=== PATIENT | female | born 1980 | race Caucasian/White ===

== ENCOUNTER → 2022-04-10 10:21 | Outpatient (CLI) | payer BC, SELFPAY ==
--- NOTE | ~2022-04-10 | MM_ITS ---
EXAMINATION: MM screening rosalba BI w phan HISTORY: Screening mammogram TECHNIQUE: Craniocaudal and mediolateral oblique 3-D tomosynthesis images were obtained and synthetic 2-D images were generated. CAD analysis was submitted and interpreted. COMPARISON: None, baseline BREAST PARENCHYMAL COMPOSITION: The breasts are heterogeneously dense, which may obscure small masses . FINDINGS: There is no suspicious mass, calcification, or architectural distortion to suggest malignan cy in either breast. IMPRESSION: 1. No mammographic evidence of malignancy. 2. Recommend routine screening mammography in one year. BI-RADS Category 1: Negative Reviewed, dictated and finalized at location A.
== END ==
PROVIDERS: PCP Nurse Practitioner Family; Visit Provider Obstetrics & Gynecology Gynecology
DX: Z12.31 Encounter for screening mammogram for malignant neoplasm of breast (principal)
CPT/HCPCS: 77063; 77067

== ENCOUNTER → 2023-06-15 08:50 | Outpatient (CLI) | payer BC, SELFPAY ==
--- NOTE | ~2023-06-15 | MM_ITS ---
EXAMINATION: MM screening rosalba BI w phan HISTORY: Screening TECHNIQUE: Craniocaudal and mediolateral oblique 3-D tomosynthesis images were obtained and synthetic 2-D images were generated. CAD analysis was submitted and interpreted. COMPARISON: 04/10/2022 BREAST PARENCHYMAL COMPOSITION: The breasts are heterogeneously dense, which may obscure small masses . FINDINGS: There is no evidence of suspicious mass, calcification, or architectural distortion to sugg est malignancy in either breast. There has been no suspicious interval change. IMPRESSION: 1. No mammographic evidence of malignancy. 2. Recommend routine screening mammography in one year. BI-RADS Category 1: Negative Reviewed, dictated and finalized at location A. 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
== END ==
PROVIDERS: PCP Obstetrics & Gynecology Gynecology; Visit Provider Obstetrics & Gynecology Gynecology
DX: Z12.31 Encounter for screening mammogram for malignant neoplasm of breast (principal)
CPT/HCPCS: 77063; 77067

== ENCOUNTER 2024-09-15 16:01 | Outpatient (CLI) | payer BC, SELFPAY ==
--- NOTE | ~2024-09-15 | MM_ITS ---
EXAMINATION: MM screening rosalba BI w phan HISTORY: Screening TECHNIQUE: Craniocaudal and mediolateral oblique 3-D tomosynthesis images were obtained and synthetic 2-D images were generated. CAD analysis was submitted and interpreted. COMPARISON: Comparison to multiple prior studies sequentially, with oldest reviewed study dated 04/10. BREAST PARENCHYMAL COMPOSITION: Not dense: There are scattered areas of fibroglandular density. FINDINGS: The left breast is stable without evidence for malignancy. There is a new cluster of indete rminate calcifications in the lower outer quadrant of the right breast. There is a focal asymmetry ju st slightly lateral to the midline in the right breast on CC view, mid to posterior depth. IMPRESSION: 1. Clustered indeterminate right breast calcifications. Focal asymmetry laterally in the right breast on CC view. 2. Additional mammographic views and possible breast ultrasound are recommended. BI-RADS Category 0: Incomplete: Needs additional imaging evaluation. Reviewed, dictated and finalized at location B. R SPRINGER IMPRESSION: 1. Clustered indeterminate right breast calcifications. Focal asymmetry lateral ly in the right breast on CC view. 2. Additional mammographic views and possible breast ultrasound are recommended . BI-RADS Category 0: Incomplete: Needs additional imaging evaluation.
== END 2024-09-15 16:02 | disposition home or self-care (01) ==
LOC: MICIMG 16:02
PROVIDERS: PCP Obstetrics & Gynecology Gynecology; Visit Provider Obstetrics & Gynecology Gynecology
DX: Z12.31 Encounter for screening mammogram for malignant neoplasm of breast (principal); R92.8 Other abnormal and inconclusive findings on diagnostic imaging of breast
CPT/HCPCS: 77063; 77067

== ENCOUNTER 2024-10-06 08:20 | Outpatient (CLI) | payer BC, SELFPAY ==
--- NOTE | ~2024-10-06 | MM_ITS ---
EXAMINATION: MM diagnostic rosalba RT w phan HISTORY: Right breast calcifications and asymmetry TECHNIQUE: Additional 3-D tomosynthesis and spot magnification images of the right breast were perfor med and synthetic 2-D images were generated. CAD analysis was submitted and interpreted. COMPARISON: 09/15/2024 BREAST PARENCHYMAL COMPOSITION:Not Dense. There are scattered areas of fibroglandular density. FINDINGS: The right breast asymmetry effaces with spot compression. No persistent mass lesion or dist ortion. Identification views demonstrate amorphous and somewhat ill-defined calcifications at the outer, post erior aspect. No definite suspicious pleomorphic calcifications evident. IMPRESSION: Probable benign calcifications right breast, as above. Six-month follow-up mammography recommended to reassess. BI-RADS category 3, probably benign findings. Reviewed, dictated and finalized at [facility]. TRIMMER IMPRESSION: Probable benign calcifications right breast, as above. Six-month follow-up mamm ography recommended to reassess. BI-RADS category 3, probably benign findings.
== END 2024-10-06 08:21 | disposition home or self-care (01) ==
LOC: MICIMG 08:21
PROVIDERS: PCP Obstetrics & Gynecology Gynecology; Visit Provider Obstetrics & Gynecology Gynecology
DX: R92.8 Other abnormal and inconclusive findings on diagnostic imaging of breast (principal)
CPT/HCPCS: 77061; 77065; G0279

== ENCOUNTER 2025-06-08 09:05 | Outpatient (CLI) | payer BC, SELFPAY ==
--- NOTE | ~2025-06-08 | MMUS_ITS ---
EXAMINATION: MM diagnostic rosalba RT w phan, US breast RT limited HISTORY: Follow-up right breast calcifications. TECHNIQUE: Additional 3-D tomosynthesis images of the right breast were performed and synthetic 2-D images were generated. CAD analysis was submitted and interpreted. High resolution Limited right breast ultrasound was performed. COMPARISON: Comparison to multiple prior studies sequentially, with oldest reviewed study dated 04/10/2022. BREAST PARENCHYMAL COMPOSITION: Dense: The breasts are heterogeneously dense, which may obscure small masses FINDINGS: MAMMOGRAPHIC FINDINGS: There is a cluster of indeterminate calcifications in the lower outer quadrant of the right breast, posterior third. There are no discrete masses or areas of architectural distortion. ULTRASOUND: Limited right breast ultrasound: At 10:00, 4 cm from the nipple there is a 3 mm cyst. At 9:00, 9 cm from the nipple there is a 5 mm cyst. At 7:00, 3 cm from the nipple there is a 3 mm cyst. No suspicious sonographic masses to suggest malignancy. IMPRESSION: 1. Clustered indeterminate right breast calcifications lower outer quadrant, posterior third. 2. Stereotactic right breast biopsy recommended. BI-RADS category 4, suspicious findings. Reviewed, dictated and finalized at location B. IMPRESSION: 1. Clustered indeterminate right breast calcifications lower outer quadrant, po sterior third. 2. Stereotactic right breast biopsy recommended. BI-RADS category 4, suspicious findings.
== END 2025-06-08 09:06 | disposition home or self-care (01) ==
LOC: MICIMG 09:05
PROVIDERS: PCP Obstetrics & Gynecology Gynecology; Visit Provider Obstetrics & Gynecology Gynecology
DX: R92.8 Other abnormal and inconclusive findings on diagnostic imaging of breast (principal)
CPT/HCPCS: 76642; 77061; 77065; G0279

== ENCOUNTER 2025-06-29 07:53 | Outpatient (CLI) | payer BC, SELFPAY ==
--- NOTE | ~2025-06-29 | MM_ITS ---
AutoText: MM stereotactic specimen RT, MM stereotactic bx RT CLINICAL HISTORY: 44-year-old female with clustered indeterminate right breast calcifications lower outer posterior third presents for review tactic core needle biopsy procedure. PROCEDURE: Stereotactic breast biopsy. The patient was brought into the stereotactic suite. A time-out procedure was performed. Preliminary images of the right breast were obtained to localize the calcifications. The area was then prepped and draped in the usual sterile fashion. 1% lidocaine was administered to the superficial soft tissues and 1% lidocaine without epinephrine was administered to the deeper soft tissues for local anesthesia. A bridgette was made in the skin and the 9 gauge Brever[place] biopsy needle was inserted through the bridgette and localized to the calcifications with confirmation by mammography. Multiple biopsy specimens were obtained. Images of the biopsy specimens demonstrate numerous calcifications corresponding with the suspicious calcifications seen on the mammogram. A [place] butterfly marker was placed in the biopsy site at the end of the procedure. Pressure was held at the site of biopsy and entry site for the needle until hemostasis was achieved. The patient tolerated the procedure well with no immediate post procedure complications. The biopsy specimens were sent to pathology for evaluation. Mammograms of the right breast in the craniocaudal and true lateral projections demonstrate the microclip in the biopsy site. IMPRESSION: Technically successful stereotactic biopsy of right breast calcifications. The patient tolerated the procedure well with no immediate post procedure complications. Pathology result pending. Reviewed, dictated and finalized at location B. EDIENT SCALER IMPRESSION: Technically successful stereotactic biopsy of right breast calcific ations. The patient tolerated the procedure well with no immediate post procedu re complications. Pathology result pending.
--- NOTE | 2025-06-29 10:41 | S_PTH ---
PATIENT: Dai Calvo LOC: [facility] U#:[id number] AGE/SX: 44/F ROOM: RE06/29/[address]: Sierra Patel MD : [id number] BED: DIS: 06/29/2025 SPEC #: [id number] RECD: 06/29/25 11:45 STATUS: ZACKERY REChandra #: [id number] EZEKIEL: 06/29/25 10:[address]: Sierra Patel DEPT: [facility] Surgical RECD BY: Ge Mooney ENTERED: 06/29/25 11:48 SP TYPE: Surgical OTHR DR: UNKNOWN,DOCTOR Tissues: A - Breast Biopsy B - Breast Biopsy C - Breast Biopsy D - Breast Biopsy Procedures: P63 Hematoxylin and Eosin Stain Gross and Microscopic Level 4 ER-60 NJ-60 MIB-60 HER 2-60 CK 5
== END 2025-06-29 07:54 | disposition home or self-care (01) ==
LOC: ANHFOHIMG 07:54
PROVIDERS: Visit Provider Surgery
DX: R92.0 Mammographic microcalcification found on diagnostic imaging of breast (principal)
CPT/HCPCS: 19081; 88305; 88342; 88360